=== PATIENT | male | born 1960 ===

== ENCOUNTER 2022-01-04 12:29 | Emergency (ER) | payer OTHER ==
[2022-01-04 14:04] LABS: BASOPHIL 0.8 % (0-2); EOSINOPHIL 2.9 % (0-5); HGB 14.3 g/dl (13.2-18.0); LYMPHOCYTE 15.7 % (15-48); MCH 26.8 pg (25.0-31.0); MCHC 33.3 g/dL (32.0-36.0); MCV 80.5 fL (78.0-100.0); MONOCYTE 8.6 % (0-12); MPV 9.1 fL (6.0-9.5); NEUTROPHIL 71.5 % (41-80); NRBC 0; PLT 190 K/uL (150-400); RBC 5.34 M/uL (4.70-6.00); RDW 14.1 % (11.5-14.0); RETICULOCYTE COUNT 1.4 % (1.0-2.0); WBC 6.5 K/uL (4.0-10.5)
[2022-01-04 14:10] LABS: INR 0.99 (0.9-1.2); PROTHROMBIN TIME 12.5 SECONDS (11.8-13.4); PTT 26.5 SECONDS (24.4-34.7)
[2022-01-04 14:21] LABS: ALBUMIN 3.5 g/dL (3.4-5.0); BILIRUBIN - TOTAL 0.4 mg/dL (0.2-1.0); BUN/CREAT RATIO (CALC) 14.9 RATIO; CREATININE 1.41 mg/dL (0.67-1.17); GLOBULIN (CALCULATION) 4.3 g/dL; MAGNESIUM 2.1 mg/dL (1.8-2.4); POTASSIUM 4.1 mmol/L (3.5-5.1); TOTAL PROTEIN 7.8 g/dL (6.4-8.2)
[2022-01-04 14:24] LABS: LACTIC ACID 1.3 mmol/L (0.4-1.9)
[2022-01-04] MEDS ORDERED: CLEOCIN300 MG PO (15:26)
[2022-01-04] MEDS ORDERED: BACITRACIN15 GM TOP (15:26)
== END 2022-01-04 16:10 | disposition home or self-care (01) ==
LOC: FER 12:29
PROVIDERS: Emergency Medicine
DX: L03.311 Cellulitis of abdominal wall (principal); Z87.891 Personal history of nicotine dependence
CPT/HCPCS: 36415; 71275; 80053; 83605; 83690; 83735; 83880; 84145; 84484; 85025; 85610; 85730; 87040; 93005; J3370; J7030; J7050; Q9967